=== PATIENT | male | born 1995 | race Caucasian/White ===

== ENCOUNTER 2016-10-22 13:19 | Inpatient (IN) | payer OTHER ==
--- NOTE | ~2016-10-22 | CT2 ---
[facility] A Service [facility] RADIOLOGY TEXT RESULTS PATIENT: ELVI BARBOUR LOCATION: [facility] : [birth year] UNIT #: [id number] AGE: [address]: COLLEEN COREY MD SEX: M ORDER DR: [id number] [place], [place] [address] [id number] E MR#: [id number] Acc #: [id number] NAME: ELVI BARBOUR. : 1995 SEX: M STUDY DATE/TIME: 10/22/2016 15:20 UNIT: KATIE ROOM: STUDY DESCRIPTION: CT Abd and Pelv W Cont Attending Physician: Marco Mock M.D. Referring Physician: Avila Ya M.D. Ordering Physician: Marco Mock M.D. Primary Care Physician: No Primary Care Physician MEDICAL IMAGING REPORT This report is preliminary unless electronic signature is present EXAM CT of the abdomen and pelvis with contrast. DATE OF EXAM 10/22/2016 INDICATIONS Upper abdominal pain, sudden onset today. PROCEDURE Contrast-enhanced CT of the abdomen and pelvis. 100 mL of Isovue-370. COMPARISON 05/27/2016 TECHNIQUE NOTE: This CT exam was performed with one or more of the following radiation dose reduction techniques: automatic exposure control, adjustment of mA and/or kV according to patient size, and iterative reconstruction. FINDINGS Included lung bases are clear. The liver enlarged measuring 20.2 cm. Hepatic steatosis. The spleen, kidneys, adrenal glands, pancreas unremarkable. Previous cholecystectomy. Bowel loops are nondilated. Appendix normal. PELVIS WITH CONTRAST: No pelvic mass or fluid. No aggressive appearing bone lesion. IMPRESSION 1. No acute findings. [facility] A Service [facility] RADIOLOGY TEXT RESULTS PATIENT: ELVI BARBOUR LOCATION: [facility] [address]-01 : [birth year] UNIT #: [id number] AGE: [address]: COLLEEN COREY MD SEX: M ORDER DR: 2. Hepatomegaly with steatosis. Dictated by... Herber Guevara M.D. THIS IS AN ELECTRONICALLY VERIFIED REPORT Herber Guevara M.D. at 10/24/2016 6:59 AM RIDDHI/alejandra TD: 10/22/2016 17:37 JOB #: [id number] MEDICAL IMAGING REPORT COPY
--- NOTE | ~2016-10-22 | HP ---
Unit #: [id number] #: [id number] Patient: ELVI BARBOUR [id number] [address] [address] [id number] E MR#: [id number] NAME: ELVI BARBOUR ROOM: Age: 21 Sex: M Admission Date: 10/22/2016 : 1995 Attending Physician: Marco Mock M.D. Primary Care Physician: No Primary Care Physician HISTORY AND PHYSICAL CHIEF COMPLAINT Abdominal pain. HISTORY OF PRESENT ILLNESS The patient is a 21-year-old male with a history of chronic recurrent relapsing idiopathic pancreatitis, who presented to the emergency room with abdominal pain at 11 o'clock this morning. The patient stated the pain is sharp, is nonradiating and is 10/10 in severity. The patient also complains of nausea and denies any vomiting. The patient had multiple admissions in the past with a similar presentation. However, the patient had a CT of the abdomen and pelvis that is negative and the patient had blood workup with a lipase that shows 213. The patient is being admitted for the above reasons. PAST MEDICAL HISTORY Chronic recurrent relapsing idiopathic pancreatitis. PAST SURGICAL HISTORY Cholecystectomy, right ankle surgery, tonsillectomy. SOCIAL HISTORY The patient works as an EMT. He drinks alcohol occasionally. He dips snuff. He lives with his mother. FAMILY HISTORY Negative for pancreatitis. ALLERGIES Codeine, penicillin and morphine. HOME MEDICATIONS None. REVIEW OF SYMPTOMS A 14-point review of symptoms was performed and only pertinent positive findings are described above, remaining are negative. PHYSICAL EXAMINATION GENERAL APPEARANCE: The patient is lying on the bed not in acute distress. VITAL SIGNS: Temperature 98.1. Pulse 89. Respiratory rate 17. Blood pressure 158/100. Sating 98% at room air. HEENT: Head: Atraumatic, normocephalic. Pupils equal, round and reactive to light and accommodation. Extraocular movements are intact. NECK: Supple. No JVD. Unit #: [id number] #: [id number] Patient: ELVI BARBOUR LUNGS: Clear to auscultation bilaterally. No rhonchi. No wheezing. HEART: Regular rate and rhythm. ABDOMEN: Soft. Positive bowel sounds. Positive for tenderness at the epigastric region. EXTREMITIES: No cyanosis. No clubbing. NEUROLOGIC: Alert, awake, oriented. No gross focal motor deficit. DIAGNOSTIC STUDIES LABORATORY: Glucose 91, BUN 14, creatinine 0.9, sodium 135, potassium 3.5, chloride 108, bicarb 24, calcium 8.7, total protein 7.4, AST 46, ALT 83, alkaline phosphatase 55. Lipase 213. WBC 11.4, hemoglobin 16.2, hematocrit 48.3, platelets 292. UA is negative. IMAGING: CT of the abdomen and pelvis is no acute findings. ASSESSMENT 1. Pancreatitis. 2. Leukocytosis. 3. Abdominal pain. PLAN To admit the patient to the inpatient with telemetry. Continue with IV fluids, normal saline at 125 mL/hour, bowel rest and the pain control with Dilaudid. Repeat the labs again in the morning and further recommendations will follow. Dictated by Jose Alberto Lu TD: 10/22/2016 18:42 JOB #: [id number] HISTORY AND PHYSICAL X X HISTORY AND PHYSICAL
[2016-10-22 13:11] LABS: BASOPHIL# 0.1 X10e3 (0-0.3); BASOPHIL% 0.8 % (0-2.5); DIFF IND NO; EOSINOPHIL# 0.2 X10e3 (0-0.7); EOSINOPHIL% 2.1 % (0.0-7.0); HEMATOCRIT 48.3 % (38.0-50.0); HEMOGLOBIN 16.2 gm/dL (13.0-16.0); LYMPHOCYTE# 3.4 X10e3 (1.0-3.5); LYMPHOCYTE% 29.8 % (17.0-45.0); MEAN CELL VOLUME 86.6 FL (83-96); MEAN CORPUSCULAR HEMOGLOBIN 29.1 PG (28-34); MEAN CORPUSCULAR HGB CONC 33.6 g/dL (30-36); MEAN PLATELET VOLUME 7.6 FL (6.5-11.5); MONOCYTE# 0.8 X10e3 (0-1.0); MONOCYTE% 7.1 % (3.0-12.0); NEUTROPHIL# 6.9 X10e3 (1.5-7.1); NEUTROPHIL% 60.2 % (40-75); PLATELET COUNT 292 X10e3 (140-420); RED BLOOD COUNT 5.58 X10e (3.90-5.60); RED CELL DISTRIBUTION WIDTH 13.1 % (11.0-15.5); WHITE BLOOD COUNT 11.4 X10e3 (4.0-10.5)
[~2016-10-22 13:19] MED LIST: HYDROCODON-ACE1 EAC5 PO; LEVAQUIN750 M1 PO; NO MEDICATIONS; PHENERGAN25 M1 PO; ROXICODONE5 M1 PO; TYLENOL325 M1 PO; ZOFRAN8 MG PO
[2016-10-22 13:21] LABS: URINE SOURCE CLEAN CATCH
[2016-10-22 13:25] LABS: URINE APPEARANCE CLEAR; URINE BILIRUBIN NEG (NEG); URINE BLOOD NEG (NEG); URINE COLOR YELLOW; URINE GLUCOSE NEG (NEG); URINE KETONE NEG (NEG); URINE LEUKOCYTE ESTERASE NEG (NEG); URINE NITRATE NEG (NEG); URINE PH 6.5 (5-8); URINE PROTEIN NEG (NEG); URINE SPECIFIC GRAVITY 1.021 (1.003-1.035); URINE UROBILINOGEN 0.2 MG/DL (NEG)
[2016-10-22 13:37] LABS: ALBUMIN SERUM 4.2 g/dL (3.5-5.0); ALKALINE PHOSPHATASE 65 U/L (32-92); ALT (SGPT) 83 U/L (10-40); AST (SGOT) 46 U/L (10-42); BILIRUBIN, DIRECT 0.1 mg/dL (0.0-0.2); BILIRUBIN,INDIRECT 0.3 mg/dL (0.0-0.9); BILIRUBIN,TOTAL 0.4 mg/dL (0.2-2.0); BLOOD UREA NITROGEN 14 mg/dL (9-23); BUN/CREATININE RATIO 15.55; CALCIUM SERUM 8.7 mg/dL (8.4-10.2); CARBON DIOXIDE 24 mmol/L (22-31); CHLORIDE 108 mmol/L (100-111); CREATININE SERUM 0.9 mg/dL (0.6-1.4); GLOM FILT RATE Estimated ABOVE60 mL/min (>60); GLUCOSE FASTING 91 mg/dL (70-110); LIPASE 213 U/L (22-51); POTASSIUM 3.5 mmol/L (3.5-5.1); PROTEIN TOTAL SERUM 7.4 g/dL (6.0-8.3); SODIUM 135 mmol/L (135-145)
[2016-10-22 13:40] LABS: CULTURE INDICATED? NO
[2016-10-22] MEDS ORDERED: NO MEDICATIONS (16:22)
[2016-10-23 05:29] LABS: BASOPHIL# 0.1 X10e3 (0-0.3); BASOPHIL% 0.8 % (0-2.5); EOSINOPHIL# 0.3 X10e3 (0-0.7); EOSINOPHIL% 2.9 % (0.0-7.0); HEMATOCRIT 42.6 % (38.0-50.0); HEMOGLOBIN 14.4 gm/dL (13.0-16.0); LYMPHOCYTE# 2.5 X10e3 (1.0-3.5); LYMPHOCYTE% 25.1 % (17.0-45.0); MEAN CELL VOLUME 86.5 FL (83-96); MEAN CORPUSCULAR HEMOGLOBIN 29.3 PG (28-34); MEAN CORPUSCULAR HGB CONC 33.8 g/dL (30-36); MEAN PLATELET VOLUME 7.7 FL (6.5-11.5); MONOCYTE# 0.7 X10e3 (0-1.0); MONOCYTE% 7.5 % (3.0-12.0); NEUTROPHIL# 6.3 X10e3 (1.5-7.1); NEUTROPHIL% 63.7 % (40-75); PLATELET COUNT 233 X10e3 (140-420); RED BLOOD COUNT 4.92 X10e (3.90-5.60); RED CELL DISTRIBUTION WIDTH 12.7 % (11.0-15.5); WHITE BLOOD COUNT 9.9 X10e3 (4.0-10.5)
[2016-10-23 05:31] LABS: DIFF IND NO
[2016-10-23 06:13] LABS: ALBUMIN SERUM 3.8 g/dL (3.5-5.0); ALKALINE PHOSPHATASE 56 U/L (32-92); ALT (SGPT) 81 U/L (10-40); AST (SGOT) 45 U/L (10-42); BILIRUBIN,TOTAL 0.9 mg/dL (0.2-2.0); BLOOD UREA NITROGEN 11 mg/dL (9-23); BUN/CREATININE RATIO 13.75; CALCIUM SERUM 8.5 mg/dL (8.4-10.2); CARBON DIOXIDE 23 mmol/L (22-31); CHLORIDE 105 mmol/L (100-111); CREATININE SERUM 0.8 mg/dL (0.6-1.4); GLOM FILT RATE Estimated ABOVE60 mL/min (>60); GLUCOSE FASTING 77 mg/dL (70-110); LIPASE 112 U/L (22-51); POTASSIUM 3.8 mmol/L (3.5-5.1); PROTEIN TOTAL SERUM 6.3 g/dL (6.0-8.3); SODIUM 137 mmol/L (135-145)
== END 2016-10-23 08:35 | disposition left against medical advice (07) | DRG 440 ==
LOC: CED 13:19 → CEDOF 18:06 → C3A PCU 19:37
PROVIDERS: Emergency Medicine; Internal Medicine
DX: K85.90 Acute pancreatitis without necrosis or infection, unspecified (principal); D72.829 Elevated white blood cell count, unspecified; F17.290 Nicotine dependence, other tobacco product, uncomplicated; Z88.5 Allergy status to narcotic agent; Z88.0 Allergy status to penicillin; Z90.49 Acquired absence of other specified parts of digestive tract
CPT/HCPCS: 36415; 74177; 80048; 80053; 80076; 81003; 83690; 85025; 94760; 96361; 96374; 96375; 99285; J1170; J1650; J2765; Q9967

== ENCOUNTER 2017-02-09 22:10 | Emergency (ER) | payer OTHER ==
[2017-02-09 22:53] LABS: BASOPHIL# 0.1 X10e3 (0-0.3); BASOPHIL% 1.2 % (0-2.5); EOSINOPHIL# 0.2 X10e3 (0-0.7); HEMATOCRIT 49.1 % (38.0-50.0); HEMOGLOBIN 16.6 gm/dL (13.0-16.0); LYMPHOCYTE# 2.7 X10e3 (1.0-3.5); LYMPHOCYTE% 22.5 % (17.0-45.0); MEAN CELL VOLUME 87.1 FL (83-96); MEAN CORPUSCULAR HEMOGLOBIN 29.4 PG (28-34); MEAN CORPUSCULAR HGB CONC 33.8 g/dL (30-36); MEAN PLATELET VOLUME 7.3 FL (6.5-11.5); MONOCYTE# 0.6 X10e3 (0-1.0); MONOCYTE% 5.1 % (3.0-12.0); NEUTROPHIL# 8.2 X10e3 (1.5-7.1); NEUTROPHIL% 69.2 % (40-75); PLATELET COUNT 308 X10e3 (140-420); RED BLOOD COUNT 5.63 X10e (3.90-5.60); RED CELL DISTRIBUTION WIDTH 13.4 % (11.0-15.5); WHITE BLOOD COUNT 11.8 X10e3 (4.0-10.5)
[2017-02-09 22:54] LABS: DIFF IND NO
[2017-02-09 23:14] LABS: ALBUMIN SERUM 4.3 g/dL (3.5-5.0); ALKALINE PHOSPHATASE 58 U/L (32-92); ALT (SGPT) 90 U/L (10-40); AST (SGOT) 43 U/L (10-42); BILIRUBIN,TOTAL 0.3 mg/dL (0.2-2.0); BLOOD UREA NITROGEN 12 mg/dL (9-23); CALCIUM SERUM 8.9 mg/dL (8.4-10.2); CARBON DIOXIDE 23 mmol/L (22-31); CHLORIDE 105 mmol/L (100-111); GLOM FILT RATE Estimated 105.6 mL/min (>60); GLUCOSE FASTING 141 mg/dL (70-110); LIPASE 35 U/L (22-51); POTASSIUM 3.2 mmol/L (3.5-5.1); PROTEIN TOTAL SERUM 7.6 g/dL (6.0-8.3); SODIUM 138 mmol/L (135-145)
[2017-02-09 23:15] LABS: BILIRUBIN, DIRECT <0.1 mg/dL (0.0-0.2); BILIRUBIN,INDIRECT 0.2 mg/dL (0.0-0.9)
== END 2017-02-10 04:00 | disposition home or self-care (01) ==
LOC: SED 22:10
PROVIDERS: Emergency Medicine
DX: K85.00 Idiopathic acute pancreatitis without necrosis or infection (principal); Z90.49 Acquired absence of other specified parts of digestive tract; Z88.0 Allergy status to penicillin; Z88.5 Allergy status to narcotic agent
CPT/HCPCS: 36415; 80048; 80076; 83690; 85025; 96361; 96374; 96375; 96376; 99284; J1170; J2405; J2550